=== PATIENT | male | born 1985 | race Caucasian/White ===

== ENCOUNTER 2025-01-03 23:17 | Emergency (ER) | payer OTHER ==
[~2025-01-03] VITALS: Ht 185.4 cm; Wt 99.8 kg
[2025-01-03] MEDS ORDERED: ACETAMINOPHEN 325 MG TABLET ONE (23:33)
[2025-01-03] MEDS ORDERED: NAPROXEN 500 MG TABLET ONE (23:34)
[2025-01-03] MEDS: NAPROXEN 500 MG TABLET PO ONE (23:35)
[2025-01-03] MEDS: ACETAMINOPHEN 500 MG TABLET PO ONE (23:36)
[2025-01-04] VITALS: BP 118/75; TEMP 208.4; O2SAT 96
== END 2025-01-04 00:01 | disposition home or self-care (01) ==
LOC: ER 23:23
DX: R07.9 Chest pain, unspecified (principal); E11.9 Type 2 diabetes mellitus without complications; V43.62XA Car passenger injured in collision with other type car in traffic accident, initial encounter; Y93.89 Activity, other specified; Y92.488 Other paved roadways as the place of occurrence of the external cause; Y99.8 Other external cause status
CPT/HCPCS: 71045; A4606; A4663